=== PATIENT | male | born 1940 | race Caucasian/White ===

== ENCOUNTER → 2016-10-09 | Outpatient (CLI) | payer OTHER, MEDICARE ==
[~2016-10-09] VITALS: Ht 188 cm; Wt 115.2 kg
[~2016-10-09] MED LIST: ADULT LOW DOSE81 MG PO; ADVIL LIQUI-GE200 MG PO; ADVIL PM CAPLE1 EACH PO; ALEVE220 MG PO; ALLERGY10 M2 PO; ALVESCO6.1 GM INH; APAP500 PO; ASPIR 8181 MG PO; BENADRYL ALLERG25 MG PO; BENADRYL25 MG PO; CARAFATE 1 GM TA1 G1 PO; CARTIA XT180 M1 PO; CENTRUM SILVER1 EAC4 PO; CHONDROITIN SU250 MG PO; CIALIS20 MG PO; COZAAR 50 MG TA50 M2 PO; DILTIAZEM 24HR180 MG PO; DYAZIDE 37.5-21 EACH PO; FINASTERIDE5 MG PO; FISH OIL 1,0001 EAC5 PO; FLOMAX0.4 MG PO; GLUCOPHAGE1000 MG PO; GLUCOPHAGE500 MG PO; GLUCOSAMIN-CHO1 EACH PO; GLUCOSAMINE &1 EAC1 PO; GLUCOSAMINE HC500 MG PO; GLUCOSAMINE-CH1 EA33 PO; GLUCOSAMINE-CH900 MG PO; IBUPROFEN 200200 M1 PO; IBUPROFEN 800800 M1 PO; IMDUR 30 MG TAB30 M1 PO; LAMISIL250 MG PO; LANSOPRAZOLE30 MG PO; LIPITOR20 MG PO; LISINOPRIL10 MG PO; LOPRESSOR 12.12.5 MG PO; METFORMIN HCL500 MG PO; MULTIVITAMINS PO; OMEGA 3 FISH O1 EACH PO; OMEPRAZOLE40 MG PO; OXYBUTYNIN 5 MG5 M1 PO; PREVACID30 MG PO; PROAIR HFA8.5 GM INH; PROTONIX40 M2 PO; RANEXA 500 MG500 M1 PO; RANEXA500 MG PO; REFRESH TEARS15 ML OPHTHALMIC; REFRESH5 ML OP; SIMVASTATIN40 MG PO; TYLENOL EXTRA500 MG PO
--- NOTE | ~2016-10-09 | HPC ---
[facility] [place] [address] PAIN MANAGEMENT CONSULTATION Name: SHANNON GASTON Room #: REG [facility] Marilyn.#: [id number] Admission: 10/09/16 Attend Phys: Ed Norman DO Discharge: Date of : 42 Report #: [id number] THIS REPORT FOR: //name// CC: Karsten Norman The patient is a very pleasant 76-year-old gentleman seen in consultation 09/21/2016. Given a lumbar epidural injection with significant improvement of baseline pain. The patient is scheduled to have a decompressive laminectomy with Dr. Gonzalo Costello at the end of October. He notes he had 100% relief of his back pain for 2-3 weeks, the pain is beginning to recur. Rates the pain 6 on a 0-10 visual analog scale, low back, right leg to the knee wraps around to the calf. PHYSICAL EXAMINATION: Unchanged from presentation. ASSESSMENT: Symptomatic lumbar radiculopathy secondary to spinal stenosis. RECOMMENDATION: Repeat epidural injection under fluoroscopy today, right of midline at L5-S1. Follow up simply as needed. Plan on following up with Dr. Costello for decompressive laminectomy. I will be happy to see him if he has ongoing pain subsequent. PROCEDURE: Lumbar epidural injection under fluoroscopy. PROCEDURE NOTE: After both written and informed consent to include risk of spinal cord damage, increased pain, weakness and dural puncture, the patient was taken to the fluoroscopy suite, placed in the prone position. After sterile prep and drape, a skin wheal with lidocaine was raised. A 22-gauge epidural Tuohy needle was inserted in the midline at L5-S1 with good loss to resistance. Negative aspiration for cerebrospinal fluid or blood was noted. Then 1 mL of Omnipaque under biplanar fluoroscopy showed good spread within the epidural space. This was followed with 80 mg of triamcinolone plus 1 mL of 1.5% preservative-free Xylocaine, 0.5 mL Xylocaine was then injected to flush the needle; it was removed. The patient was monitored for an appropriate period of time and discharged in good and stable condition. <ELECTRONICALLY SIGNED> By: Ed Norman DO 10/12/16 1237 1254 1945 Ed Norman DO /nt
[2016-10-09 11:08] VITALS: BP 148/71
== END ==
LOC: PAIN 06:10
DX: M48.06 Spinal stenosis, lumbar region (principal); F10.21 Alcohol dependence, in remission

== ENCOUNTER → 2016-11-02 | Outpatient (CLI) | payer OTHER, MEDICARE ==
[~2016-11-02] VITALS: Ht 185.4 cm; Wt 111.1 kg
[~2016-11-02] MED LIST changes: +MAXZIDE-25 MG1 EACH PO
--- NOTE | ~2016-11-02 | CATHLAB ---
[facility] [place] [address] INVASIVE PROCEDURE REPORT Name: SHANNON GASTON Room #: REG [facility]#: [id number] Admission: 11/02/16 Attend Phys: Wang Sharpe MD Discharge: Date of : 42 Date of Service: 11/02/16 1526 Report #: [id number] THIS REPORT FOR: //name// CC: Wang Sheets DATE OF SERVICE: 11/02/2016 INDICATIONS: Unstable angina. Full risks, benefits and alternatives of cardiac catheterization were explained to the patient. All questions were answered. Informed consent was obtained. A Barbeau test was performed on the left radial artery. The left wrist area was prepped and draped in a sterile manner. Lidocaine was given subcutaneously. A 5-Italian sheath was inserted into the left radial artery via modified Seldinger technique. Nitroglycerin and verapamil was injected through the sheath. 5000 units of heparin was given through peripheral IV. CORONARY ANATOMY: The left main has a severe, 80% stenosis in the distal segment. The RCA is a dominant vessel with mild disease in the proximal and mid segments, 30%. The distal RCA fills patent PDA and moderate sized posterolateral branch. GRAFTS: There is a patent GROSSMAN graft to left internal mammary artery with an end-to-side anastomosis to the mid LAD. There were no flow limiting lesions within the mammary. After the anastomosis, there is antegrade flow down to the apex. There is a patent sequential vein graft with a [id number] anastomosis to the first diagonal artery and then an end-to-side anastomosis to moderate sized ramus artery. There were no flow limiting lesions within the vein graft. There is a small second diagonal artery, filled via collateral circulation. The left circumflex artery is filled via retrograde blood flow from the ramus artery. A left ventriculogram was performed revealing normal LV systolic function, ejection fraction of 60%. The LVEDP is 18 mmHg. There is no gradient across the outflow tract. IMPRESSION: 1. Patent left internal mammary artery to the left anterior descending. 2. Patent sequential saphenous vein graft to the first diagonal artery and ramus artery. There is retrograde filling from the ramus artery to the left [facility] [address] [place] [address] INVASIVE PROCEDURE REPORT Name: SHANNON GASTON Room #: REG [facility]#: [id number] Admission: 11/02/16 Attend Phys: Wang Sharpe MD Discharge: Date of : 42 Date of Service: 11/02/16 1526 Report #: [id number] circumflex artery. 3. Occluded second diagonal artery, this is a small caliber vessel, which fills via collateral circulation. Medical therapy is recommended. 4. Patent, capitan grande band right coronary artery with mild disease. 5. Normal left ventricular systolic function. 6. Recommend medical therapy. <ELECTRONICALLY SIGNED> By: Wang Sharpe MD 11/03/16 0902 1526 Wang Sharpe MD /lani
[2016-11-02 11:51] VITALS: BP 121/57
[2016-11-02 11:55] LABS: HEMATOCRIT 37.7 % (42.0-52.0); HEMOGLOBIN 12.7 gm/dL (14.0-18.0); MCH 25.9 pg (26.0-34.0); MCHC 33.6 g/dL (28.0-37.0); MCV 76.9 fL (80.0-100.0); RBC 4.91 mil/uL (4.50-6.00); RDW 18.2 % (10.5-14.5); WBC 7.7 thou/uL (4.0-11.0)
[2016-11-02 12:03] LABS: CALCIUM 9.2 mg/dL (8.5-10.1); CREATININE 1.2 mg/dL (0.7-1.3); POTASSIUM 4.2 mmol/L (3.5-5.1)
== END | disposition home or self-care (01) ==
LOC: CATH 10:25
PROVIDERS: Internal Medicine Cardiovascular Disease
DX: I25.10 Atherosclerotic heart disease of native coronary artery without angina pectoris (principal); E11.9 Type 2 diabetes mellitus without complications; I49.9 Cardiac arrhythmia, unspecified; K21.9 Gastro-esophageal reflux disease without esophagitis; I10 Essential (primary) hypertension; E78.5 Hyperlipidemia, unspecified; E66.9 Obesity, unspecified; F10.99 Alcohol use, unspecified with unspecified alcohol-induced disorder; Z96.641 Presence of right artificial hip joint; Z96.653 Presence of artificial knee joint, bilateral; Z95.1 Presence of aortocoronary bypass graft; Z90.49 Acquired absence of other specified parts of digestive tract; Z98.42 Cataract extraction status, left eye; Z98.41 Cataract extraction status, right eye; Z68.32 Body mass index [BMI] 32.0-32.9, adult

== ENCOUNTER → 2016-12-31 | Outpatient (CLI) | payer OTHER, MEDICARE | LOC: RAD 11:09 | DX: R06.02 Shortness of breath (principal) ==

== ENCOUNTER → 2017-01-07 | Outpatient (CLI) | payer OTHER, MEDICARE | LOC: ULTRA 07:38 | DX: I82.409 Acute embolism and thrombosis of unspecified deep veins of unspecified lower extremity (principal); R06.00 Dyspnea, unspecified ==

== ENCOUNTER 2017-03-22 17:20 | Emergency (ER) | payer OTHER, MEDICARE ==
[~2017-03-22] VITALS: Ht 188 cm; Wt 117.9 kg
[2017-03-22] MEDS ORDERED: ELIQUIS5 MG PO (18:07)
[2017-03-22] MEDS ORDERED: NEURONTIN 300300 M1 PO (18:09)
== END 2017-03-22 19:42 | disposition home or self-care (01) ==
LOC: ER 17:20
DX: S00.03XA Contusion of scalp, initial encounter (principal); I10 Essential (primary) hypertension; E78.5 Hyperlipidemia, unspecified; G47.30 Sleep apnea, unspecified; F10.99 Alcohol use, unspecified with unspecified alcohol-induced disorder; Z95.5 Presence of coronary angioplasty implant and graft; Z96.641 Presence of right artificial hip joint; Z90.49 Acquired absence of other specified parts of digestive tract; Z96.653 Presence of artificial knee joint, bilateral; Z88.8 Allergy status to other drugs, medicaments and biological substances; Z88.5 Allergy status to narcotic agent; Z88.6 Allergy status to analgesic agent; V43.52XA Car driver injured in collision with other type car in traffic accident, initial encounter; Y93.I9 Activity, other involving external motion; Y92.89 Other specified places as the place of occurrence of the external cause; Y99.8 Other external cause status

== ENCOUNTER → 2017-05-26 | Outpatient (CLI) | payer OTHER, MEDICARE ==
[~2017-05-26] MED LIST changes: +ELIQUIS5 MG PO; +NEURONTIN 300300 M1 PO
--- NOTE | ~2017-05-26 | 2DMMODE ---
[facility] [place] [address] 2 D/M-MODE ECHOCARDIOGRAM Name: MARILINSHANNON Room #: REG CL [facility]#: [id number] Admission: 05/26/17 Attend Phys: Francisco Hawkins Discharge: Date of : 42 Date of Service: 05/26/17 1413 Report #: [id number] THIS REPORT FOR: //name// APPROVED REPORT Study performed: 05/26/2017 09:50:11 EXAM: Comprehensive 2D, Doppler, and color-flow Echocardiogram Patient Location: Out-Patient Status: routine BSA: 2.41 HR: 60 bpm BP: 172/75 mmHg Other Information Study Quality: Adequate Indications Pulmonary Hypertension Hx: CABG, HTN, HLD 2D Dimensions RVDd: 40.25 mm LVEF(%): 60.38 (>50%) IVSd: 14.64 (7-11mm) LVOT Diam: 20.80 (18-24mm) LVDd: 52.53 mm PWd: 15.26 (7-11mm) Ascending Ao: 31.12 (22-36mm) LVDs: 35.47 (25-40mm) Aortic Root: 33.18 mm IVC: 20.00 mm Jones's LVEF: 60.38 % Volumes Left Atrial Volume (Systole) Single Plane 4CH: 90.74 mL Single Plane 2CH: 77.40 mL LA ESV Index: 42.00 mL/m2 Aortic Valve AoV Peak Kenny.: 1.77 m/s AO Peak Gr.: 12.53 mmHg LVOT Max P.32 mmHg LVOT Max V: 1.26 m/s CANDIE Vmax: 2.41 cm2 Mitral Valve E/A Ratio: 1.5 MV Decel. Time: 241.79 ms [facility] [place] [address] 2 D/M-MODE ECHOCARDIOGRAM Name: SHANNON GASTON Room #: [facility].#: [id number] Admission: 05/26/17 Attend Phys: Francisco Hawkins Discharge: Date of : 42 Date of Service: 05/26/17 1413 Report #: [id number] MV E Max Kenny.: 1.21 m/s MV A Kenny.: 0.81 m/s MV PHT: 70.12 ms IVRT: 36.91 ms Pulmonary Valve PV Peak Kenny.: 1.67 m/s PV Peak Gr.: 11.11 mmHg Pulmonary Vein P Vein S: 0.69 m/s P Vein A: 0.22 m/s P Vein D: 0.62 m/s P Vein A Dur.: 129.2 msec P Vein S/D Ratio: 1.11 Tricuspid Valve TR Peak Kenny.: 2.94 m/s RAP Estimate: 5.00 mmHg TR Peak Gr.: 34.46 mmHg PA Pressure: 39.00 mmHg Left Ventricle The left ventricle is normal size. There is normal LV segmental wall motion. Mild concentric left ventricular hypertrophy. The left ventricular systolic function is normal. LVEF is 60-65%. Grade II - pseudonormal filling dynamics. Right Ventricle The right ventricle is normal size. The right ventricular systolic function is normal. Atria Left atrium is moderately dilated. Right atrium is mildly dilated. Aortic Valve Aortic valve is calcified. No aortic regurgitation is present. There is no aortic valvular stenosis. Mitral Valve Mild mitral annular calcification. Trace mitral regurgitation. No evidence of mitral valve stenosis. Tricuspid Valve The tricuspid valve is normal in structure. Mild to moderate tricuspid regurgitation. Estimated PAP of 39mmHg. Pulmonic Valve The pulmonary valve is normal in structure. Trace pulmonic [facility] [address] [place] [address] 2 D/M-MODE ECHOCARDIOGRAM Name: SHANNON GASTON Room #: REG CL [facility]#: [id number] Admission: 05/26/17 Attend Phys: Francisco Hawkins Discharge: Date of : 42 Date of Service: 05/26/17 1413 Report #: [id number] regurgitation. Great Vessels The aortic root is normal in size. IVC is normal in size and collapses >50% with inspiration. Pericardium There is no pericardial effusion. <Conclusion> The left ventricle is normal size. LVEF is 60-65%. Left atrium is moderately dilated. Right atrium is mildly dilated. Aortic valve is calcified. No aortic regurgitation is present. There is no aortic valvular stenosis. Mild mitral annular calcification. Trace mitral regurgitation. The tricuspid valve is normal in structure. Mild to moderate tricuspid regurgitation. Estimated PAP of 39mmHg. The pulmonary valve is normal in structure. Trace pulmonic regurgitation. There is no pericardial effusion. <ELECTRONICALLY SIGNED> By: Paxton Davis MD 05/26/17 1413 12 12 Paxton Davis MD /INF
== END ==
LOC: CV 09:41
DX: I27.20 Pulmonary hypertension, unspecified (principal)

== ENCOUNTER 2017-10-05 03:18 | Inpatient (IN) | payer OTHER, MEDICARE ==
[~2017-10-05] VITALS: Ht 188 cm; Wt 116.8 kg
--- NOTE | ~2017-10-05 | EKG ---
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 10/12/17 1321 140 07 Paulo Shepard MD, [facility] /EPI
--- NOTE | ~2017-10-05 | S ---
[facility] [place] [address] SURGICAL PATH RPT PROCEDURE Name: MARILINSHANNON Su Room #: 358-P ADM IN M.R.#: [id number] Admission: 10/05/17 Date of : 42 Discharge: Report #: [id number] Path Case #: [id number] PATHOLOGY REPORT COLLECTION DATE: 10/11/2017 RECEIVED DATE: 10/11/2017 SUBMITTING PHYS: Dr. Ifrah Benitez OTHER PHYS: Dr. Karsten Lugo SPECIMEN(S) RECEIVED: A.Small bowel B.Gastric polyp C.Cecal polyps x2 D.Descending polyp at 50 cm E.Polyps at 25 cm x5 * * * * * * * * * * * * FINAL DIAGNOSIS: A. Small bowel mucosa, small bowel rule out celiac, endoscopic biopsy: - Negative for villous blunting or increase in intraepithelial lymphocytosis. - Negative for dysplasia or malignancy. B. Polyp, gastric polyp, endoscopic biopsy: - Compatible with a fundic gland polyp. - Negative for dysplasia. C. Polyp x 2, cecal polyp, endoscopic biopsy: - Both fragments showing tubular adenoma. - Negative for high-grade dysplasia. D. Polyp, at descending colon at 50 cm, endoscopic biopsy: - Tubular adenoma. - Negative for high-grade dysplasia. E. Polyp, at 25 cm x 5, endoscopic biopsy: - All fragments showing hyperplastic polyp. - Negative for dysplasia. (IUV:mgr; 10/12/2017) PATHOLOGIST: Bita Aparicio M.D. REPORT ELECTRONICALLY SIGNED BY: Bita Aparicio M.D. DATE/TIME: 10/12/2017 14:13 * * * * * * * * * * * * GROSS PATHOLOGY: A. Received in formalin labeled "BECCA Rodriguez small bowel, rule out celiac," is a segment of tidwell soft tissue measuring 0.3 [address] [address] SURGICAL PATH RPT PROCEDURE Name: SHANNON GASTON Room #: 358-P ADM IN .R.#: [id number] Admission: 10/05/17 Date of : 41 Discharge: Report #: [id number] Path Case #: [id number] maximum dimension. The specimen is submitted entirely in cassette A1. B. Received in formalin labeled "BECCA Rodriguez gastric polyp," are 2 segments of tidwell soft tissue measuring 0.5 x 0.3 x 0.3 cm in aggregate dimensions and ranging from 0.3 to 0.5 cm in maximum dimension. The specimen is submitted entirely in cassette B1. C. Received in formalin labeled "Shannon Gaston, cecal polyp 2," are 2 segments of tidwell soft tissue measuring 0.8 x 0.5 x 0.2 cm in aggregate dimensions and ranging from 0.3 to 0.5 cm in maximum dimension. The specimen is submitted entirely in cassette C1. D. Received in formalin labeled "Shannon Gaston, polyp at descending colon at 50 cm," are 4 segments of tidwell soft tissue measuring 2.3 x 1.2 x 0.5 cm in aggregate dimensions and ranging from 0.4 to 0.8 cm in maximum dimension. The specimen is submitted entirely in cassette D1. E. Received in formalin labeled "Shannon Gaston, polyps at 25 cm 5," are 3 segments of tidwell soft tissue measuring 1.0 x 0.5 x 0.2 cm in aggregate dimensions and ranging from 0.2 to 0.4 cm in maximum dimension. The specimen is submitted entirely in cassette E1. After filtration of the specimen container, no additional tissue was recovered. (TSD; 10/11/2017) CLINICAL HISTORY: Pre-OP DX: GI bleed, iron deficiency anemia Post-OP DX: Cecal polyps, gastric polyps, colon polyps INITIAL CPT CODE(S): A; 16780 B; 19141 C; 22800 D; 86334 E; 52798 Professional services performed by [employer] at [facility] [address], [place] [address] Technical services performed by [employer] at [address] [place] [address], [address], [place] [address]. [employer] [address] [place] [address] PHONE: [phone] DIRECTOR: Tristian Kilpatrick M.D. * * * END OF REPORT * * *
--- NOTE | ~2017-10-05 | HC ---
[facility] [place] [address] CONSULTATION Name: SHANNON GASTON Room #: 170-8 ADM IN M.R.#: [id number] Admission: 10/05/17 Attend Phys: Isidoro Florentino MD Discharge: Date of : 42 Report #: [id number] THIS REPORT FOR: //name// CC: Isidoro Fumo Carlos Sheets DATE OF SERVICE: 10/05/2017 ATTENDING PHYSICIAN: Dr. Florentino. REASON FOR CONSULTATION: Fever, leukocytosis. HISTORY OF PRESENT ILLNESS: The patient is a 77-year-old white man, admitted through the Emergency Room with history of confusion, fever and leukocytosis. Apparently, the patient was undergoing bowel prep for a colonoscopy today when he accidentally suffered a fall, became confused and he was brought to the Emergency Room where his initial evaluation revealed significant leukocytosis and fever of 102 degrees Fahrenheit. The patient undergoes initial evaluation and started on combination of Levaquin, vancomycin, Zosyn and oseltamivir. ID opinion is requested regarding leukocytosis and fever of 102. The patient at present is completely alert and a delightful person to interview. He has minimal throat discomfort and some hoarseness of his voice and he has some mild left flank discomfort, but no other focal type signs or symptoms. The patient denies nausea, vomiting. Obviously he is having liquid stools since he is undergoing bowel prep for colonoscopy. He does have frequent urination for a number of years on account of prostate enlargement. PAST MEDICAL HISTORY: Coronary artery bypass graft in 2008, right total hip and right total knee replacement in the years 2013 and 2011. Right shoulder rotator cuff surgery, cholecystectomy, left total knee replacement in 1994. Hypertension, hiatal hernia, AV node ablation for atrial tachycardia, Inga-Dixon tear GI bleeding. Cervical diskectomy, appendectomy, bilateral cataract surgery lens implants and right-sided macular degeneration. Previous episode of small-bowel obstruction. DRUG ALLERGIES: TERBINAFINE, OXYCODONE, PROPOXYPHENE, ADHESIVE TAPE. MEDICATIONS: The patient is on treatment with vancomycin loading dose 2 grams followed by 1 gram every 8 hours, Zosyn 4.5 gram IV single dose, Levaquin 750 mg IV daily, also receiving multivitamin, aspirin, finasteride, isosorbide mononitrate, , diltiazem, gabapentin, apixaban, tamsulosin, atorvastatin, insulin Lispro, loratadine, fluticasone propionate, p.r.n. glucose glucagon, polyethylene glycol, sublingual nitroglycerin if needed, oseltamivir 75 mg b.i.d. x 10 doses. The patient [place] [address] CONSULTATION Name: SHANNON GASTON Room #: 170-8 [facility] IN M.R.#: [id number] Admission: 10/05/17 Attend Phys: Isidoro Florentino MD Discharge: Date of : 42 Report #: [id number] SOCIAL HISTORY: . Living with . REVIEW OF SYSTEMS: Fully alert and cognizant of on jeb at the present time. Relates he was confused early this morning. Remainder of review of systems negative. PHYSICAL EXAMINATION: GENERAL: A well-developed man, not toxic looking, no distress. VITAL SIGNS: Temperature 102.5 on admission, down to 99.5, pulse 86, respirations 18, BP 129/55. HEENMT: Status post bilateral lens implants. Mouth: No thrush or hairy leukoplakia. Pharynx normal. NECK: Supple, no thyromegaly. LUNGS: Totally clear on auscultation. HEART: S1, S2. No gallops or murmur. ABDOMEN: Soft, no masses or megaly. GENITALIA: Deferred. RECTAL: Deferred. EXTREMITIES: No clubbing, cyanosis. NEUROLOGIC: Grossly within normal limits. LABORATORY DATA: Revealed the following abnormals: Creatinine 1.5, glucose 180. WBC 21,300, hemoglobin 12.3 g/dL, white blood cell count differential revealed 86% neutrophils. Hemoglobin A1c pending. B12 level normal. The upper viral respiratory panel by PCR is pending. The rapid influenza A and B test negative. The urinalysis revealed some ketonuria, otherwise negative. No ABGs. MICROBIOLOGY DATA: Blood cultures negative. No clinical indication for urine culture. RADIOLOGY EVALUATION: CT scan of the head revealed atrophic changes. Chest x-ray reveals status post coronary artery bypass graft and no pulmonary infiltrates. CT scan of the abdomen and pelvis revealed status post cholecystectomy, splenomegaly, inferior vena cava filter and right renal cyst as well as sigmoid diverticula. ASSESSMENT: 1. Febrile illness and leukocytosis of undetermined etiology, possible viral. 2. Colonic diverticula. 3. Bowel preps for colonoscopy. 4. History of coronary artery bypass grafting, status post cholecystectomy, appendectomy, bilateral total knee replacements and right hip replacement. 5. Status post bilateral cataract surgery with lens implants and right-sided macular degeneration. SUGGESTIONS: Recommend ESR, CRP, MRSA screen, procalcitonin. Discontinue [facility] [address] [place] [address] CONSULTATION Name: SHANNON GASTON Room #: 170-8 ADM IN M.R.#: [id number] Admission: 10/05/17 Attend Phys: Isidoro Florentino MD Discharge: Date of : 42 Report #: [id number] vancomycin. Continue Levaquin and add Zosyn 3.375 grams IV every 8 hours. If cultures negative, discontinue intravenous antibiotics. If rapid influenza test and influenza test by PCR negative, discontinue oseltamivir. Suspect we are dealing with viral infection. Dr. Florentino, thank you for requesting my suggestions in the care of your patient. <ELECTRONICALLY SIGNED> By: Ned Gonzalez MD 10/05/17 1106 1032 1100 Ned Gonzalez MD /nt
--- NOTE | ~2017-10-05 | HC ---
[facility] [place] [address] CONSULTATION Name: SHANNON GASTON Room #: 358-P [facility] IN M.R.#: [id number] Admission: 10/05/17 Attend Phys: Shannon Lugo DO Discharge: 10/12/17 Date of : 42 Report #: [id number] THIS REPORT FOR: //name// CC: Ned Sheets DATE OF SERVICE: 10/07/2017 REASON FOR CONSULTATION: Dyspnea. IMPRESSION: 1. Dyspnea, question related to sepsis. 2. Group B strep bacteremia. 3. Right leg cellulitis. 4. Microcytic anemia. 5. Obstructive sleep apnea. 6. History of deep venous thrombosis and pulmonary embolism. 7. Question of gastrointestinal bleed or colon lesion. 8. Possible diverticulitis. PLAN: 1. Agree with current therapy. We will ask GI to see because of the confusing area on CT scan and mild drop in hemoglobin, which may be related to volume status and blood draw: 2. We will do venous Doppler of the lower extremity. 2. We will use his home CPAP. 3. We will do a chest x-ray. 4. May need CT of chest, if he continues to complain of progressive shortness of breath. HISTORY OF PRESENT ILLNESS: This is a very pleasant 77-year-old male came in the ER secondary to an episode of confusion, fatigue and falling related to taking his bowel prep. He was found to have group G streptococcus bacteremia, 1 out of 2 and per the physician seemed to be getting better, but discussed with started feeling somewhat worse and leg reddened today and became more swollen. He did have some shortness of breath. No definite chest pain or palpitations. PAST MEDICAL HISTORY: ALLERGIES: TO LAMISIL, ADHESIVE, OXYCODONE AND PROPOXYPHENE. MEDICATIONS: Includes omeprazole, glucosamine, metformin, triamterene, diltiazem, apixaban, gabapentin, atorvastatin, isosorbide, losartan, Ranexa, finasteride, multivitamin, omega 3, amoxicillin and I believe put back on Rocephin. [facility] [address] [place] [address] CONSULTATION Name: SHANNON GASTON Room #: 358-P [facility] IN .R.#: [id number] Admission: 10/05/17 Attend Phys: Shannon Lugo DO Discharge: 10/12/17 Date of : 42 Report #: [id number] FAMILY HISTORY: Noncontributory. SOCIAL HISTORY: Negative current tobacco, ETOH or drugs of abuse. REVIEW OF SYSTEMS: Initially weak, chill and disorientation. No definite chest pain. Positive shortness of breath and mild cough. No definite abdominal pain. Positive rash, right leg. PHYSICAL EXAMINATION: VITAL SIGNS: Temperature 97.5, pulse 63, respiratory rate 20 and BP 147/77. EYES: Negative icterus. NECK: Trachea midline. LUNGS: Clear. HEART: Regular. ABDOMEN: Bowel sounds present. Obese. EXTREMITIES: Showed right lower extremity erythema, edema and tenderness. LABORATORY DATA: Venous Doppler is negative. Lactate 1.5. Chest x-ray: Cardiomegaly and mild vascular prominence. pH 7.45, pCO2 34 and pO2 78. We will follow closely with you. <ELECTRONICALLY SIGNED> By: Kimber Wilson MD 10/28/17 1054 1729 0053 Kimber Wilson MD /nt
--- NOTE | ~2017-10-05 | EKG ---
[place] [address] [address] [facility] [place] [address] ELECTROCARDIOGRAM REPORT Name: SHANNON GASTON Room #: 170-8 ADM IN M.R.#: [id number] Admission: 10/05/17 Attend Phys: Isidoro Florentino MD Discharge: Date of : 42 Report #: [id number] THIS REPORT FOR: //name// [facility] ED Test Date: 2017-10-05 Test Time: 03:59:32 Pat Name: SHANNON GASTON Department: Room: 170 Gender: M Case Fitter: GISELE : 1940 Requested By: Jose Diaz Order Number: [id number] MD: Paulo Shepard Measurements Intervals [place] Rate: 98 P: -4 ID: [id number] QRS: 43 QRSD: 92 T: 171 QT: 384 QTc: 491 Interpretive Statements Sinus rhythm Prolonged ID interval Nonspecific ST and T wave abnormality prolonged QT interval Compared to ECG 08/03/2015 23:01:38 First degree AV block now present Electronically Signed On 10-05-2017 7:56:47 INJECTION MOLDING MACHINE OFFBEARER by Paulo Shepard [email or web address] <ELECTRONICALLY SIGNED> By: Paulo Shepard MD, [facility] 10/05/17 0756 0359 0359 Paulo Shepard MD, [facility] /EPI
--- NOTE | ~2017-10-05 | EKG ---
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 10/08/17 0844 D: [id number] 1 Paulo Shepard MD, [facility] /EPI
[2017-10-05 03:55] LABS: HEMOGLOBIN 12.3 gm/dL (14.0-18.0); MCH 24.7 pg (26.0-34.0); MCHC 32.4 g/dL (28.0-37.0); MCV 76.3 fL (80.0-100.0); PLATELET COUNT 194 thou/uL (150-400); RBC 4.97 mil/uL (4.50-6.00); RDW 16.9 % (10.5-14.5); WBC 21.3 thou/uL (4.0-11.0)
[2017-10-05 04:05] LABS: ANION GAP 14 mmol/L (7-16); BUN 18 mg/dL (7-18); CALCIUM 9.4 mg/dL (8.5-10.1); CHLORIDE 101 mmol/L (98-107); CO2 24 mmol/L (21-32); CREATININE 1.5 mg/dL (0.7-1.3); GLUCOSE 180 mg/dL (74-106); POTASSIUM 3.6 mmol/L (3.5-5.1); SODIUM 139 mmol/L (136-145)
[2017-10-05 04:13] LABS: LIPASE 74 U/L (73-393); SGOT 17 U/L (15-37); SGPT 23 U/L (30-65); TOTAL BILIRUBIN 0.9 mg/dL (<0.1-1.0); TOTAL PROTEIN 7.5 g/dL (6.4-8.2); TROPONIN-I < 0.04 ng/mL (<0.06)
[2017-10-05 04:41] LABS: ANISOCYTOSIS 1+
[2017-10-05 05:00] LABS: URINE BILIRUBIN NEGATIVE (Negative); URINE BLOOD NEGATIVE (Negative); URINE CLARITY CLEAR; URINE COLOR YELLOW; URINE GLUCOSE-RANDOM* NEGATIVE (Negative); URINE KETONES 1+ (Negative); URINE LEUKOCYTES-REFLEX NEGATIVE (Negative); URINE NITRITE-REFLEX NEGATIVE (Negative); URINE PROTEIN (DIPSTICK) NEGATIVE (Negative); URINE SPECIFIC GRAVITY >= 1.030 (1.005-1.035); URINE UROBILINOGEN 0.2 E.U./dl (0.2-1.0)
[2017-10-05 09:19] LABS: CHOLESTEROL 114 mg/dL (<200); HDL CHOLESTEROL 48 mg/dL (>40); LDL CHOLESTEROL 53 mg/dL (<100); TC:HDL 2.4 Ratio (Not establshd); TRIGLYCERIDE 67 mg/dL (<150); VLDL 13 mg/dL (<40)
[2017-10-05 10:39] VITALS: BP 124/60
[2017-10-05 13:43] VITALS: BP 134/70
[2017-10-05 15:25] VITALS: BP 140/80
[2017-10-05 19:25] VITALS: BP 148/75
[2017-10-05 23:45] VITALS: BP 142/68
[2017-10-06 01:10] LABS: GLYCOHEMOGLOBIN (HGB A1C) 5.9 % (4.8-5.6)
[2017-10-06 04:30] VITALS: BP 148/70
[2017-10-06 06:51] LABS: ABSOLUTE NEUTROPHILS 7.2 thou/uL (1.4-8.2); BASOPHILS 0.4 % (0.0-2.0); EOSINOPHILS 0.1 % (0.0-3.0); HEMATOCRIT 35.8 % (42.0-52.0); HEMOGLOBIN 11.8 gm/dL (14.0-18.0); LYMPHOCYTES 10.7 % (24.0-44.0); MCHC 32.9 g/dL (28.0-37.0); MONOCYTES 8.3 % (1.0-8.0); PLATELET COUNT 150 thou/uL (150-400); POLYS 80.5 % (36.0-66.0); RBC 4.71 mil/uL (4.50-6.00); RDW 16.7 % (10.5-14.5); WBC 8.9 thou/uL (4.0-11.0)
[2017-10-06 07:03] LABS: CALCIUM 8.6 mg/dL (8.5-10.1); CREATININE 1.3 mg/dL (0.7-1.3); MAGNESIUM 1.7 mg/dL (1.8-2.4); POTASSIUM 3.4 mmol/L (3.5-5.1)
[2017-10-06 07:48] VITALS: BP 137/75
[2017-10-06 11:38] VITALS: BP 117/63
[2017-10-06 15:43] VITALS: BP 130/55
[2017-10-06 17:59] LABS: MAGNESIUM 1.9 mg/dL (1.8-2.4); POTASSIUM 3.3 mmol/L (3.5-5.1)
[2017-10-06 20:00] VITALS: BP 126/52
[2017-10-07 04:00] VITALS: BP 145/56
[2017-10-07 04:34] LABS: HEMATOCRIT 30.7 % (42.0-52.0); HEMOGLOBIN 10.3 gm/dL (14.0-18.0); MCH 25.4 pg (26.0-34.0); MCHC 33.6 g/dL (28.0-37.0); MCV 75.8 fL (80.0-100.0); RBC 4.05 mil/uL (4.50-6.00); RDW 16.9 % (10.5-14.5); WBC 6.3 thou/uL (4.0-11.0)
[2017-10-07 04:46] LABS: % SATURATION 6 % (20-39); IRON 19 ug/dL (65-175); TIBC 303 ug/dL (250-450)
[2017-10-07 04:49] LABS: ALBUMIN 2.8 g/dL (3.4-5.0); CALCIUM 8.4 mg/dL (8.5-10.1); CREATININE 1.2 mg/dL (0.7-1.3); POTASSIUM 3.6 mmol/L (3.5-5.1); TOTAL BILIRUBIN 0.3 mg/dL (<0.1-1.0); TOTAL PROTEIN 6.1 g/dL (6.4-8.2)
[2017-10-07] MEDS ORDERED: OMEPRAZOLE40 MG PO (08:07)
[2017-10-07 08:45] VITALS: BP 150/70
[2017-10-07 12:08] VITALS: BP 127/56
[2017-10-07 17:27] VITALS: BP 129/54
[2017-10-07 19:36] VITALS: BP 140/66
[2017-10-08 03:52] VITALS: BP 139/77
[2017-10-08 05:33] LABS: HEMATOCRIT 31.5 % (42.0-52.0); HEMOGLOBIN 10.5 gm/dL (14.0-18.0); MCH 25.2 pg (26.0-34.0); MCHC 33.2 g/dL (28.0-37.0); MCV 75.8 fL (80.0-100.0); PLATELET COUNT 147 thou/uL (150-400); RBC 4.15 mil/uL (4.50-6.00); RDW 16.6 % (10.5-14.5); WBC 6.2 thou/uL (4.0-11.0)
[2017-10-08 05:40] LABS: CALCIUM 8.7 mg/dL (8.5-10.1); CREATININE 1.2 mg/dL (0.7-1.3); POTASSIUM 3.7 mmol/L (3.5-5.1)
[2017-10-08 07:25] VITALS: BP 150/82
[2017-10-08] MEDS ORDERED: AMOXICILLIN 50500 MG PO (08:40)
[2017-10-08 09:27] LABS: ANISOCYTOSIS 1+; PLATELET ESTIMATE SLIGHTLY DECREASED
[2017-10-08 09:28] LABS: HYPOCHROMASIA 1+; LARGE PLATELETS FEW; MICROCYTES 1+; OVALOCYTES 1+; POIKILOCYTOSIS 1+; POLYCHROMASIA SLIGHT
[2017-10-08 09:29] LABS: TOXIC GRANULATION SLIGHT
[2017-10-08 10:12] VITALS: BP 150/82
[2017-10-08 11:28] VITALS: BP 147/74
[2017-10-08 11:51] LABS: BE(vivo) -0.3 mmol/L (-2 to +3); HCO3 23.2 mmol/L (22.0-26.0); PCO2 33.8 mmHg (35.0-45.0); PO2 78.2 mmHg (80.0-100.0); pH 7.454 (7.360-7.450); sO2 96.2 % (92.0-98.0)
[2017-10-08 16:11] VITALS: BP 147/77
[2017-10-08 19:45] VITALS: BP 136/75
[2017-10-08 23:10] LABS: ADENOVIRUS Negative (Negative); INFLUENZA A Negative (Negative); INFLUENZA B Negative (Negative); METAPNEUMOVIRUS Negative (Negative); PARAINFLUENZA 1 Negative (Negative); PARAINFLUENZA 2 Negative (Negative); PARAINFLUENZA 3 Negative (Negative); RHINOVIRUS Negative (Negative); RSV A Negative (Negative); RSV B Negative (Negative)
[2017-10-09 03:29] VITALS: BP 131/73
[2017-10-09 06:51] LABS: HEMATOCRIT 31.7 % (42.0-52.0); HEMOGLOBIN 10.6 gm/dL (14.0-18.0); MCH 25.2 pg (26.0-34.0); MCHC 33.5 g/dL (28.0-37.0); MCV 75.3 fL (80.0-100.0); RBC 4.21 mil/uL (4.50-6.00); RDW 16.7 % (10.5-14.5)
[2017-10-09 08:32] VITALS: BP 116/80
[2017-10-09 11:24] VITALS: BP 166/75
[2017-10-09 15:23] VITALS: BP 162/80
[2017-10-09 19:04] VITALS: BP 163/82
[2017-10-10 04:17] VITALS: BP 129/40
[2017-10-10 04:51] LABS: ABSOLUTE NEUTROPHILS 3.1 thou/uL (1.4-8.2); BASOPHILS 0.8 % (0.0-2.0); EOSINOPHILS 6.8 % (0.0-3.0); HEMATOCRIT 33.2 % (42.0-52.0); HEMOGLOBIN 10.9 gm/dL (14.0-18.0); LYMPHOCYTES 25.7 % (24.0-44.0); MCH 24.9 pg (26.0-34.0); MCHC 32.8 g/dL (28.0-37.0); MCV 75.9 fL (80.0-100.0); MONOCYTES 13.8 % (1.0-8.0); PLATELET COUNT 180 thou/uL (150-400); POLYS 52.9 % (36.0-66.0); RBC 4.37 mil/uL (4.50-6.00); WBC 5.9 thou/uL (4.0-11.0)
[2017-10-10 05:03] LABS: CALCIUM 9.3 mg/dL (8.5-10.1); CREATININE 1.2 mg/dL (0.7-1.3); POTASSIUM 3.9 mmol/L (3.5-5.1)
[2017-10-10 06:01] VITALS: BP 123/77
[2017-10-10 08:48] VITALS: BP 131/56
[2017-10-10 11:12] VITALS: BP 120/60
[2017-10-10 15:49] VITALS: BP 118/56
[2017-10-10 19:48] VITALS: BP 148/80
[2017-10-11 04:25] VITALS: BP 147/73
[2017-10-11 05:59] LABS: HEMATOCRIT 33.5 % (42.0-52.0); MCH 24.7 pg (26.0-34.0); MCHC 32.8 g/dL (28.0-37.0); MCV 75.4 fL (80.0-100.0); RBC 4.45 mil/uL (4.50-6.00); RDW 16.3 % (10.5-14.5); WBC 6.1 thou/uL (4.0-11.0)
[2017-10-11 06:23] LABS: CREATININE 1.2 mg/dL (0.7-1.3); POTASSIUM 3.5 mmol/L (3.5-5.1)
[2017-10-11 08:00] VITALS: BP 140/78
[2017-10-11 14:00] VITALS: BP 122/75
[2017-10-11 21:08] VITALS: BP 13/64; BP 131/64
[2017-10-12 05:42] VITALS: BP 108/60
[2017-10-12 08:00] VITALS: BP 135/77
[2017-10-12 12:00] VITALS: BP 115/69
[2017-10-12 13:28] VITALS: BP 150/82
[2017-10-12 13:48] VITALS: BP 150/82
[2017-11-24] MEDS ORDERED: GLIPIZIDE XL5 MG PO (11:20)
[2017-11-24] MEDS ORDERED: ASPIR 8181 MG PO (11:21)
[2017-11-24] MEDS ORDERED: IRON325 PO (15:30)
[2018-02-08] MEDS ORDERED: ELIQUIS5 MG PO (08:36)
[2018-02-08] MEDS ORDERED: MULTAQ 400 MG400 MG PO (08:36)
== END 2017-10-12 15:04 | disposition home or self-care (01) | DRG 871 ==
LOC: ER 03:18 → EROBS 04:30 → 3W 04:30
PROVIDERS: Emergency Medicine; Family Medicine; Hospitalist; Internal Medicine Pulmonary Disease; Nurse Practitioner; Registered Nurse
PROC: 0DB68ZZ Excision of Stomach, Via Natural or Artificial Opening Endoscopic (ICD-10-PCS; principal; 2017-10-11)
PROC: 0DB88ZX Excision of Small Intestine, Via Natural or Artificial Opening Endoscopic, Diagnostic (ICD-10-PCS; principal; 2017-10-11)
PROC: 0DBH8ZZ Excision of Cecum, Via Natural or Artificial Opening Endoscopic (ICD-10-PCS; principal; 2017-10-11)
PROC: 0DBM8ZZ Excision of Descending Colon, Via Natural or Artificial Opening Endoscopic (ICD-10-PCS; principal; 2017-10-11)
DX: A41.9 Sepsis, unspecified organism (principal); E43 Unspecified severe protein-calorie malnutrition; N17.1 Acute kidney failure with acute cortical necrosis; L03.115 Cellulitis of right lower limb; B95.5 Unspecified streptococcus as the cause of diseases classified elsewhere; I95.1 Orthostatic hypotension; Z96.653 Presence of artificial knee joint, bilateral; Z96.641 Presence of right artificial hip joint; D50.9 Iron deficiency anemia, unspecified; G47.33 Obstructive sleep apnea (adult) (pediatric); E86.0 Dehydration; N40.0 Benign prostatic hyperplasia without lower urinary tract symptoms; I25.10 Atherosclerotic heart disease of native coronary artery without angina pectoris; E11.9 Type 2 diabetes mellitus without complications; M19.90 Unspecified osteoarthritis, unspecified site; I48.0 Paroxysmal atrial fibrillation; E66.9 Obesity, unspecified; K57.90 Diverticulosis of intestine, part unspecified, without perforation or abscess without bleeding; K63.5 Polyp of colon; K31.7 Polyp of stomach and duodenum; I10 Essential (primary) hypertension; R65.20 Severe sepsis without septic shock; E78.5 Hyperlipidemia, unspecified; Z88.6 Allergy status to analgesic agent; Z88.8 Allergy status to other drugs, medicaments and biological substances; Z95.1 Presence of aortocoronary bypass graft; Z90.49 Acquired absence of other specified parts of digestive tract; Z98.42 Cataract extraction status, left eye; Z98.41 Cataract extraction status, right eye; K57.30 Diverticulosis of large intestine without perforation or abscess without bleeding; Z86.718 Personal history of other venous thrombosis and embolism; Z86.711 Personal history of pulmonary embolism; Z95.828 Presence of other vascular implants and grafts; Z79.82 Long term (current) use of aspirin; Z79.899 Other long term (current) drug therapy; Z68.33 Body mass index [BMI] 33.0-33.9, adult
CPT/HCPCS: 10779; 62110; 62900; 70005

== ENCOUNTER → 2017-11-03 | Outpatient (CLI) | payer OTHER, MEDICARE ==
[~2017-11-03] MED LIST changes: +AMOXICILLIN 50500 MG PO
== END | disposition home or self-care (01) ==
LOC: GI 08:10
DX: D50.9 Iron deficiency anemia, unspecified (principal); Z98.890 Other specified postprocedural states; Z79.899 Other long term (current) drug therapy; Z88.8 Allergy status to other drugs, medicaments and biological substances; Z79.891 Long term (current) use of opiate analgesic

== ENCOUNTER → 2018-02-08 | Outpatient (CLI) | payer OTHER, MEDICARE ==
[~2018-02-08] MED LIST changes: +GLIPIZIDE XL5 MG PO; +IRON325 PO; +MULTAQ 400 MG400 MG PO
--- NOTE | ~2018-02-08 | P ---
[facility] [place] [address] PROCEDURE REPORT Name: SHANNON GASTON Room #: REG Jennifer Guerrero.#: [id number] Admission: 02/08/18 Attend Phys: Thad Gonzalez MD Discharge: Date of : 41 Report #: [id number] THIS REPORT FOR: //name// CC: Wang Gonzalez PROCEDURE: Implantable loop recorder insertion. PREOPERATIVE DIAGNOSES: 1. Palpitations. 2. Atrial fibrillation. HISTORY: The patient is a 77-year-old with a history of paroxysmal AFib and frequent palpitations, who is here for implantable loop recorder insertion. DESCRIPTION OF PROCEDURE: The patient underwent informed consent. He was prepped and draped in a sterile fashion. I injected lidocaine at the site. An incision was made and the device was injected subcutaneously. A layer of 3-0 Vicryl was performed and surgical glue was placed at the skin layer. There were no complications and no significant bleeding. The implanted device was a Pollfish BioMonitor 2, serial #[id number]. The device was programmed to its nominal settings. CONCLUSIONS: Successful implantable loop recorder insertion. By: [id number] Thad Gonzalez MD /nt
[2018-02-08 12:42] VITALS: BP 148/67
== END | disposition home or self-care (01) ==
LOC: CATH 08:22
DX: I48.0 Paroxysmal atrial fibrillation (principal)

== ENCOUNTER → 2018-06-02 | Outpatient (CLI) | payer OTHER, MEDICARE ==
[2018-06-02 08:46] LABS: HEMATOCRIT 42.3 % (42.0-52.0); HEMOGLOBIN 14.8 gm/dL (14.0-18.0); MCV 88.6 fL (80.0-100.0); RBC 4.78 mil/uL (4.50-6.00); RDW 13.9 % (10.5-14.5); WBC 5.6 thou/uL (4.0-11.0)
[2018-06-02 09:00] LABS: ALBUMIN 4.1 g/dL (3.4-5.0); CALCIUM 9.5 mg/dL (8.5-10.1); CREATININE 1.2 mg/dL (0.7-1.3); POTASSIUM 4.2 mmol/L (3.5-5.1); TOTAL BILIRUBIN 0.5 mg/dL (<0.1-1.0); TOTAL PROTEIN 7.4 g/dL (6.4-8.2)
== END ==
LOC: CAT 08:03
PROVIDERS: Internal Medicine Cardiovascular Disease
DX: I48.91 Unspecified atrial fibrillation (principal); I25.10 Atherosclerotic heart disease of native coronary artery without angina pectoris; K44.9 Diaphragmatic hernia without obstruction or gangrene; M47.814 Spondylosis without myelopathy or radiculopathy, thoracic region; Z90.49 Acquired absence of other specified parts of digestive tract

== ENCOUNTER 2018-06-13 06:53 | Observation (INO) | payer OTHER, MEDICARE ==
[~2018-06-13] VITALS: Ht 188 cm; Wt 124.7 kg
--- NOTE | ~2018-06-13 | P ---
[facility] [place] [address] PROCEDURE REPORT Name: SHANNON GASTON Room #: 218-P [facility] Moshe Roy#: [id number] Admission: 06/13/18 Attend Phys: Thad Gonzalez MD Discharge: 06/14/18 Date of : 41 Report #: [id number] THIS REPORT FOR: //name// CC: Tavon Gonzalez PREOPERATIVE DIAGNOSES: 1. Paroxysmal atrial fibrillation. 2. Cor triatriatum karen. POSTOPERATIVE DIAGNOSES: 1. Paroxysmal atrial fibrillation. 2. Cor triatriatum karen. PROCEDURES PERFORMED: 1. AFib ablation, CPT code 52891. 2. 3D mapping EP, CPT code 57282. 3. Intracardiac echo, CPT code 14373. HISTORY: The patient is a 78-year-old with history of coronary artery disease, status post CABG and paroxysmal atrial fibrillation and symptomatic bradycardia intolerant of Multaq therapy. He is here for AFib ablation. On transesophageal echo, he was incidentally found to have cor triatriatum karen. ANESTHESIA: The patient underwent general anesthesia with no anesthesia related complications. DESCRIPTION OF PROCEDURE: The patient underwent informed consent. We discussed the details of the procedure including the risks, which include but not limited to bleeding, infection, vascular damage, cardiac perforation as well as stroke or [place]. He understood these risks and is willing to proceed. The patient was brought to the EP laboratory in a fasting and unsedated state and prepped and draped in a sterile fashion. I obtained access to the right femoral vein x 3, placing an 8, 9 and 7-Malian short sheath using the modified Seldinger technique. The patient does have a history of IVC filter placed and I did take an image of this pre and post-ablation and it remained stable. I was able to cross the IVC filter without disruption. Once I entered the right atrium, I did have some difficulties advancing my ice catheter and decapolar catheter into the right atrium, which was likely due to his cor triatriatum karen. We did visualize this under intracardiac ultrasound and I was able to maneuver my decapolar catheter into the SVC; therefore, I knew I could perform phrenic nerve pacing and then I was able to put my decapolar catheter into the coronary sinus. Next, the patient was systemically heparinized and a transseptal was performed using an SL1 sheath and a Celina needle. I was able [facility] [address] [place] [address] PROCEDURE REPORT Name: SHANNON GASTON Room #: 218-P RUBI Roy#: [id number] Admission: 06/13/18 Attend Phys: Thad Gonzalez MD Discharge: 06/14/18 Date of : 41 Report #: [id number] to cross with my SL1 sheath into the left atrium. I then attempted to exchange the SL1 sheath for the cryo sheath, but due to the thickness of the septum, I could not advance the cryo sheath into the left atrium. Therefore, using a 6 mm x 3 cm balloon, I was able to predilate the interatrial septum and then I was able to advance my cryo sheath into the left atrium. At baseline, the patient was in sinus rhythm with a sinus cycle length of 1045 milliseconds, NH interval 250 milliseconds, QRS duration 90 milliseconds, QT interval 430 milliseconds. Next, I placed the cryoballoon into the left superior vessel. The patient did have evidence of a left common ostium and evidence of a right superior and right inferior pulmonary vein. I performed three freezes in the left superior pulmonary vein and this would not isolate. I then attempted to isolate the left inferior vein and this would not isolate either. This was despite good temperatures. I then attempted to isolate the right superior pulmonary vein and again this would not isolate despite good temperatures. I was concerned that potentially the cryoballoon had a slight kink in the mid shaft, which was preventing good apposition of the balloon with the veins. We therefore exchanged to a new cryoballoon and I went back to the left superior pulmonary vein and this isolated within 90 seconds. We performed two 4-minute freezes in this vein. I then went to go isolate the left inferior pulmonary vein and this was now isolated. I then turned my attention to the right superior pulmonary vein. I performed a 4-minute freeze and this vein isolated. I then performed a second freeze of around 120 seconds given the attempts were cold. I then re-interrogated the left-sided veins. These remained isolated and I turned my attention to the right inferior pulmonary vein. I performed a 4-minute freeze and was still connected and then I performed a second freeze of 180 seconds and during the second freeze the vein isolated within 20 seconds. All veins appear to be isolated. During isolation of the right-sided veins, I did perform phrenic nerve pacing from the decapolar catheter placed at the subclavian vessel. Using intracardiac ultrasound, I verified there is no pericardial effusion. As such, all catheters and sheaths were pulled out after hemostasis was obtained. The patient awoke. Post-ablation, the patient was in sinus rhythm with a sinus cycle length of 1050 milliseconds, NH interval 247 milliseconds, QRS duration 99 milliseconds and QT interval 475 milliseconds. CONCLUSIONS: 1. Successful AFib ablation with isolation of the left common ostium, the right superior and right inferior pulmonary veins. 2. Successful transseptal despite cor triatriatum karen. <ELECTRONICALLY SIGNED> By: Thad Gonzalez MD 06/15/18 1609 1233 0056 Thad Gonzalez MD /nt
--- NOTE | ~2018-06-13 | D ---
[facility] [place] [address] DISCHARGE SUMMARY Name: SHANNON GASTON Room #: 218-P [facility] Moshe Roy#: [id number] Admission: 06/13/18 Attend Phys: Thad Gonzalez MD Discharge: 06/14/18 Date of : 41 Report #: [id number] THIS REPORT FOR: //name// CC: Tavon Gonzalez DATE OF SERVICE: 06/14/2018 DISCHARGE DIAGNOSES: 1. Paroxysmal atrial fibrillation. 2. Coronary artery disease. 3. Cor triatriatum karen. HISTORY OF PRESENT ILLNESS: The patient is a 78-year-old with history of atrial fibrillation who has been intolerant of Multaq therapy due to symptomatic bradycardia. He is here for an AFib ablation. His DONNA prior to the procedure showed that he had cor triatriatum karen. The patient underwent successful AFib ablation today. His cor triatriatum karen did not really impede my ability to go transseptal. All veins were successfully isolated and there were no procedural complications. HOSPITAL COURSE: The patient was monitored in the CCU overnight and did well. He maintained sinus rhythm. On the day of discharge, he denied any chest pain, shortness of breath, fevers or chills. On physical exam, his heart was in regular rate and rhythm. Lungs were clear to auscultation bilaterally. Abdomen was soft, nontender, nondistended and his right groin showed no bruising or hematoma. As such, he was deemed stable for discharge home. Discharge instructions were reviewed. His home medications were unchanged and he will continue with Multaq and Eliquis therapy. He will follow up in 2 weeks for a clinic visit. <ELECTRONICALLY SIGNED> By: Thad Gonzalez MD 06/15/18 1609 0822 1146 Thad Gonzalez MD /nt
[2018-06-13 07:14] LABS: HEMATOCRIT 43.5 % (42.0-52.0); HEMOGLOBIN 14.9 gm/dL (14.0-18.0); MCH 30.6 pg (26.0-34.0); MCHC 34.3 g/dL (28.0-37.0); MCV 89.1 fL (80.0-100.0); PLATELET COUNT 150 thou/uL (150-400); RBC 4.88 mil/uL (4.50-6.00); RDW 13.9 % (10.5-14.5); WBC 6.2 thou/uL (4.0-11.0)
[2018-06-13 07:23] LABS: CALCIUM 9.7 mg/dL (8.5-10.1); CREATININE 1.4 mg/dL (0.7-1.3); POTASSIUM 4.2 mmol/L (3.5-5.1)
[2018-06-13 07:29] LABS: TOTAL BILIRUBIN 0.8 mg/dL (<0.1-1.0); TOTAL PROTEIN 7.7 g/dL (6.4-8.2)
[2018-06-13 07:30] LABS: APTT 25.7 Seconds (24.5-32.8); PROTIME 10.8 Seconds (9.3-11.4)
[2018-06-13] MEDS ORDERED: TYLENOL EXTRA500 MG PO (07:35)
[2018-06-13 07:36] VITALS: BP 131/64
[2018-06-13] MEDS ORDERED: CARDIZEM CD 18180 M3 PO (07:40)
[2018-06-13 07:48] LABS: ABSOLUTE NEUTROPHILS 3.7 thou/uL (1.4-8.2)
[2018-06-13 15:06] VITALS: BP 128/75
[2018-06-13 15:55] VITALS: BP 128/75
[2018-06-13 20:47] VITALS: BP 144/74
[2018-06-14 00:19] VITALS: BP 144/72
[2018-06-14 07:22] VITALS: BP 148/71
[2018-06-14 09:10] VITALS: BP 148/71
[2018-06-14 09:21] VITALS: BP 148/71
== END 2018-06-14 09:45 | disposition home or self-care (01) ==
LOC: CATH 06:53 → 2N 14:13 → CATH 14:42 → 2N 06-14 09:45 → ENTRNSPT 06-14 09:52
PROVIDERS: Internal Medicine Cardiovascular Disease
DX: I48.0 Paroxysmal atrial fibrillation (principal); Q24.2 Cor triatriatum; I25.10 Atherosclerotic heart disease of native coronary artery without angina pectoris; I47.1 Supraventricular tachycardia; G47.33 Obstructive sleep apnea (adult) (pediatric); E78.00 Pure hypercholesterolemia, unspecified; R00.1 Bradycardia, unspecified; Z98.890 Other specified postprocedural states; Z72.89 Other problems related to lifestyle; Z95.1 Presence of aortocoronary bypass graft; Z90.49 Acquired absence of other specified parts of digestive tract; Z86.711 Personal history of pulmonary embolism; Z79.82 Long term (current) use of aspirin; Z79.01 Long term (current) use of anticoagulants; Z79.899 Other long term (current) drug therapy
CPT/HCPCS: 62110; 62900; 65020; 65040; 65043; 70005

== ENCOUNTER → 2018-06-16 | Outpatient (CLI) | payer OTHER, MEDICARE ==
[~2018-06-16] MED LIST changes: +CARDIZEM CD 18180 M3 PO
--- NOTE | ~2018-06-16 | 2DMMODE ---
[facility] [address] [place] [address] 2 D/M-MODE ECHOCARDIOGRAM Name: SHANNON GASTON Room #: REG [facility]#: [id number] Admission: 06/16/18 Attend Phys: Thad Gonzalez Discharge: Date of : 42 Date of Service: 06/16/18 1221 Report #: [id number] THIS REPORT FOR: //name// APPROVED REPORT Study performed: 06/16/2018 11:38:29 EXAM: Limited 2D Echocardiogram Patient Location: Out-Patient Room #: P Status: routine BSA: 2.49 HR: 56 bpm BP: 130/74 mmHg Rhythm: NSR Other Information Study Quality: Adequate Indications S/P Ablation, R/O pericardial effusion Chest Pain, Short of Breath 2D Dimensions IVSd: 12.62 (7-11mm) LVDd: 49.18 mm PWd: 14.37 (7-11mm) LVDs: 34.84 (25-40mm) LV Single Plane 4CH: 55.55 % LV Single Plane 2CH: 55.37 % Left Ventricle Left ventricle is grossly normal size. Mild concentric left ventricular hypertrophy. The left ventricular systolic function is normal. The left ventricular ejection fraction is within the normal range. LVEF is 55%. Great Vessels IVC is normal in size and collapses >50% with inspiration. Pericardium There is no pericardial effusion. <Conclusion> Left ventricle is grossly normal size. [facility] [address] [place] [address] 2 D/M-MODE ECHOCARDIOGRAM Name: SHANNON GASTON Room #: REG [facility].#: [id number] Admission: 06/16/18 Attend Phys: Thad Gonzalez Discharge: Date of : 42 Date of Service: 06/16/18 1221 Report #: [id number] Mild concentric left ventricular hypertrophy. The left ventricular systolic function is normal. LVEF is 55%. There is no pericardial effusion. <ELECTRONICALLY SIGNED> By: Wang Sharpe MD 06/16/18 1221 20 20 Wang Sharpe MD /INF
== END ==
LOC: RAD 11:12 → CV 11:12
DX: I51.7 Cardiomegaly (principal); I48.91 Unspecified atrial fibrillation; R06.00 Dyspnea, unspecified; Z98.890 Other specified postprocedural states

== ENCOUNTER → 2018-07-11 | Outpatient (CLI) | payer OTHER, MEDICARE | LOC: CAT 10:27 | DX: G31.9 Degenerative disease of nervous system, unspecified (principal); I67.82 Cerebral ischemia; G93.0 Cerebral cysts ==

== ENCOUNTER → 2019-04-06 | Outpatient (CLI) | payer OTHER, MEDICARE ==
[~2019-04-06] VITALS: Ht 188 cm; Wt 120.2 kg
[2019-04-06 07:10] LABS: HEMATOCRIT 45.3 % (42.0-52.0); HEMOGLOBIN 15.5 gm/dL (14.0-18.0); MCH 30.1 pg (26.0-34.0); MCHC 34.1 g/dL (28.0-37.0); MCV 88.3 fL (80.0-100.0); PLATELET COUNT 160 thou/uL (150-400); RBC 5.13 mil/uL (4.50-6.00); RDW 13.5 % (10.5-14.5); WBC 4.9 thou/uL (4.0-11.0)
[2019-04-06 07:12] VITALS: BP 153/73
[2019-04-06 07:24] LABS: APTT 27.1 Seconds (24.5-32.8); PROTIME 10.5 Seconds (9.3-11.4)
[2019-04-06 07:25] LABS: ALBUMIN 3.9 g/dL (3.4-5.0); CALCIUM 9.3 mg/dL (8.5-10.1); CREATININE 1.3 mg/dL (0.7-1.3); POTASSIUM 3.9 mmol/L (3.5-5.1); TOTAL BILIRUBIN 0.6 mg/dL (<0.1-1.0); TOTAL PROTEIN 7.7 g/dL (6.4-8.2)
[2019-04-06 08:06] LABS: ABSOLUTE NEUTROPHILS 2.8 thou/uL (1.4-8.2)
[2019-04-06 08:07] LABS: ANISOCYTOSIS SLIGHT
--- NOTE | 2019-04-07 14:23 | P ---
[facility] [place] [address] PROCEDURE REPORT Name: SHANNON GASTON Room #: REG JOSS Kirill#: [id number] Admission: 04/06/19 Attend Phys: Thad Goznalez MD Discharge: Date of : 41 Report #: [id number] THIS REPORT FOR: //name// CC: Karsetn Gonzalez PREOPERATIVE DIAGNOSIS: Supraventricular tachycardia. POSTOPERATIVE DIAGNOSIS: Typical atrioventricular wisam reentrant tachycardia. PROCEDURES PERFORMED: 1. SVT ablation, CPT code 46206. 2. EP with left atrial pacing and recording, CPT code 16795. 3. Program stimulation and pacing after IV drug infusion, CPT code 35011. 4. 3D mapping, CPT code 33952. HISTORY OF PRESENT ILLNESS: The patient is a 79-year-old male status post AVNRT ablation approximately 5 years ago by another cotton tipper. He is also recently status post AFib ablation. The patient also has a history of cor triatriatum karen as well as an IVC filter. He also has an implantable loop recorder, which showed frequent episodes of supraventricular tachycardia that looks to be consistent with AV wisam reentrant tachycardia. He is here for EP study and ablation. ANESTHESIA: The patient underwent general anesthesia with no anesthesia complications. DESCRIPTION OF PROCEDURE: The patient underwent informed consent. We discussed the details of the procedure including the risks, which included but not limited to bleeding, vascular damage, cardiac perforation as well as stroke or [place]. We discussed that we would look for SVT. If we could not induce SVT, we would check his pulmonary veins and ensure that these are still isolated. The patient was brought to the EP laboratory in a fasting and sedated state and prepped and draped in a sterile fashion. The patient did receive IV antibiotics for antibiotic prophylaxis given prior infections. I obtained access in the right femoral vein x 3, in the left femoral vein x 1. In the right femoral vein, I placed a 6 and 7-Upper Sorbian short sheath and in the left femoral vein, I placed a 6-Upper Sorbian short sheath. Next, under fluoroscopy, I advanced all catheters easily through the IVC filter and into the heart. I placed 3 quadripolar catheters at the HRA, His and RV positions. I also placed a decapolar catheter into the coronary sinus for left atrial pacing and recording. Of note, I could not get the decapolar catheter to sit well into the coronary sinus and it was usually about longterm out would flip out as well. Next, a basic EP study was performed. At baseline, the patient was in sinus rhythm with sinus cycle length of 965 milliseconds, NC interval 200 milliseconds, QRS duration 90 milliseconds, QT interval 440 milliseconds, AH interval 145 [facility] [address] [place] [address] PROCEDURE REPORT Name: SHANNON GASTON Room #: REG CL Kirill#: [id number] Admission: 04/06/19 Attend Phys: Thad Gonzalez MD Discharge: Date of : 41 Report #: [id number] milliseconds, and HV interval 42 milliseconds. Next, atrial pacing was performed and AV block appeared to be around 600 milliseconds, but it was hard to discern as the patient had frequent PACs. Ventricular pacing was performed and VA block was noted at 420 milliseconds and VA conduction appeared to be both midline and decremental. Next, isoproterenol infusion was initiated and AV block was around 500 milliseconds. Atrial ERP was noted at 350 milliseconds at [address] cycle length. VA block was noted at 300 milliseconds, which was both midline and decremental. Again, I could not induce SVT. Next, isoproterenol infusion was increased to 4 mcg per minute. VA ERP was noted at 210 milliseconds at [address] cycle length with VA conduction that was both midline and decremental. Atrial burst pacing was then performed and the patient went into SVT with a tachycardia cycle length of 400 milliseconds, septal VA time of 35 milliseconds. Ventricular entrainment was performed and there was evidence of a VAHV response consistent with typical AV wisam reentrant tachycardia. 3D MAPPING AND ABLATION: Next, I removed my HRA catheter and placed my SR0 sheath and 4-mm Biosense Ayala ablation catheter into the right atrium. I created a detailed 3D geometry of the His bundle region, slow pathway region and coronary sinus ostium. Again, I had difficulty keeping the decapolar catheter in the coronary sinus, so this was removed. I moved my His catheter to the right atrium, so I could monitor atrial electrograms during RF ablation. Initially, I had difficulty finding a good signal. My first two lesions at 50 cazares and 55 degrees resulted no junctionals. I switched over to my F-curve and was able to get a better A and V ratio. I had very nice atrial signals and I performed an additional 3 lesions, each of 1 minute duration and during these 3 lesions, I got intermittent junctional beats. I was approximately 10 mm below our His cloud and I was right at the lip of the coronary sinus ostium. As such, post-ablation testing was performed. I was able to once again get my decapolar catheter into the coronary sinus about longterm. I used this for atrial burst pacing. Isoproterenol was initiated at 4 mcg per minute and AV block was noted at 400 milliseconds. AV wisam ERP was noted at 310 milliseconds at [address] cycle length. No SVT was induced. Isoproterenol was then increased to 5 mcg per minute and AV block was noted at 350 milliseconds with no inducible SVT. Previously SVT was induced at around 350 milliseconds prior to ablation. There was no evidence of any jumps and no echoes noted as well. Post-ablation, the patient was in sinus rhythm, sinus cycle length of 655 milliseconds, NC interval 210 milliseconds, QRS duration 90 milliseconds, QT interval 385 milliseconds, AH interval 128 milliseconds, and HV interval 42 milliseconds. As such, all catheters and sheaths were pulled. Hemostasis obtained. The patient awoke neurologically and hemodynamically intact. No complications and no significant bleeding. CONCLUSIONS: 1. Successful ablation of typical AV wisam reentrant tachycardia. 2. Normal SA wisam function. [facility] [address] [place] [address] PROCEDURE REPORT Name: SHANNON GASTON Room #: REG [facility] Kirill#: [id number] Admission: 04/06/19 Attend Phys: Thad Gonzalez MD Discharge: Date of : 41 Report #: [id number] 3. Normal AV wisam function. 4. Normal His-Purkinje function. 5. No other inducible arrhythmias on or off isoproterenol. <ELECTRONICALLY SIGNED> By: Thad Gonzalez MD 04/07/19 1423 1150 1630 Thad Gonzalez MD /nt
== END | disposition home or self-care (01) ==
LOC: CATH 06:36
PROVIDERS: Internal Medicine Cardiovascular Disease
DX: I47.1 Supraventricular tachycardia (principal); I10 Essential (primary) hypertension; I48.91 Unspecified atrial fibrillation; I25.10 Atherosclerotic heart disease of native coronary artery without angina pectoris; E78.5 Hyperlipidemia, unspecified; G47.33 Obstructive sleep apnea (adult) (pediatric); E11.9 Type 2 diabetes mellitus without complications; I25.2 Old myocardial infarction; N28.9 Disorder of kidney and ureter, unspecified; K21.9 Gastro-esophageal reflux disease without esophagitis; E66.09 Other obesity due to excess calories; Z98.890 Other specified postprocedural states; Z95.1 Presence of aortocoronary bypass graft; Z79.899 Other long term (current) drug therapy; Z79.01 Long term (current) use of anticoagulants; Z86.711 Personal history of pulmonary embolism; Z88.8 Allergy status to other drugs, medicaments and biological substances
CPT/HCPCS: 62110; 62900; 70005

== ENCOUNTER → 2019-12-06 | Outpatient (CLI) | payer OTHER, MEDICARE | LOC: SJCVCIMAG 10-10 08:18 | DX: I25.10 Atherosclerotic heart disease of native coronary artery without angina pectoris (principal); I47.1 Supraventricular tachycardia; I10 Essential (primary) hypertension; E78.00 Pure hypercholesterolemia, unspecified; I48.91 Unspecified atrial fibrillation; E78.5 Hyperlipidemia, unspecified; E11.9 Type 2 diabetes mellitus without complications; Z79.82 Long term (current) use of aspirin; Z79.899 Other long term (current) drug therapy; Z95.1 Presence of aortocoronary bypass graft ==

== ENCOUNTER → 2020-07-05 | Outpatient (CLI) | payer OTHER, MEDICARE | LOC: SJCVC 14:58 | PROVIDERS: ATTEND Internal Medicine Cardiovascular Disease | DX: R94.31 Abnormal electrocardiogram [ECG] [EKG] (principal); I48.0 Paroxysmal atrial fibrillation; I25.10 Atherosclerotic heart disease of native coronary artery without angina pectoris; I10 Essential (primary) hypertension; E78.00 Pure hypercholesterolemia, unspecified; Z79.899 Other long term (current) drug therapy ==

== ENCOUNTER 2020-09-30 13:06 | Inpatient (IN) | payer OTHER, MEDICARE ==
[~2020-09-30] VITALS: Ht 188 cm; Wt 112.0 kg
[2020-09-30 13:08] VITALS: BP 131/67
--- NOTE | 2020-09-30 13:17 | EKG ---
[address] [address] ELECTROCARDIOGRAM REPORT Name: SHANNON GASTON Room #: PRE M.R.#: [id number] Admission: Attend Phys: Discharge: Date of : 41 Report #: [id number] [facility] ED Test Date: 2020-09-30 Test Time: 13:13:34 Pat Name: SHANNON GASTON Department: Room: Gender: Sox Analyst: catherine : 1940 Requested By: Mago Nath Order Number: [id number] MD: Thad Gonzalez Measurements Intervals [place] Rate: 70 P: -11 KS: 235 QRS: 48 QRSD: 110 T: 76 QT: 469 QTc: 507 Interpretive Statements Sinus rhythm Prolonged KS interval Compared to ECG 11/24/2017 11:27:08 Electronically Signed On 09-30-2020 13:16:48 BUSINESS COORDINATOR by Thad Gonzalez [email or web address] <ELECTRONICALLY SIGNED> By: Thad Gonzalez MD 09/30/20 1316 1313 1313 Thad Gonzalez MD /EPI
[2020-09-30 14:01] LABS: ABSOLUTE NEUTROPHILS 3.4 thou/uL (1.4-8.2); BASOPHILS 0.3 % (0.0-2.0); EOSINOPHILS 1.9 % (0.0-3.0); HEMATOCRIT 42.6 % (42.0-52.0); HEMOGLOBIN 14.6 gm/dL (14.0-18.0); LYMPHOCYTES 26.9 % (24.0-44.0); MCH 30.8 pg (26.0-34.0); MCHC 34.3 g/dL (28.0-37.0); MCV 89.6 fL (80.0-100.0); MONOCYTES 13.8 % (1.0-8.0); PLATELET COUNT 157 thou/uL (150-400); POLYS 57.1 % (36.0-66.0); RBC 4.75 mil/uL (4.50-6.00); RDW 13.5 % (10.5-14.5)
[2020-09-30 14:09] LABS: ANION GAP 10 mmol/L (7-16); BUN 24 mg/dL (7-18); CALCIUM 9.5 mg/dL (8.5-10.1); CHLORIDE 101 mmol/L (98-107); CO2 26 mmol/L (21-32); CREATININE 1.5 mg/dL (0.7-1.3); GLUCOSE 164 mg/dL (74-106); POTASSIUM 3.7 mmol/L (3.5-5.1); SODIUM 137 mmol/L (136-145)
[2020-09-30 14:19] LABS: TROPONIN-I <0.06 ng/mL (<0.06)
--- NOTE | 2020-09-30 15:17 | NUR ---
PT. CONT. IN ER AT THIS TIME. PT. TO BE ADMITTED AND TO HAVE CARDIAC CATH. TOMORROW. PT. DENIES CP OR COMPLAINT OTHERWISE. PT. REMAINS ALERT AND ORIENTED X 4. NO DISTRESS APPRECIATED. VS AT THIS TIME= 96%RA SP02, 70HR, 16RR, 130/58 BP, 0/10 PAIN. PT. WITH SR ON THE MONITOR.
--- NOTE | 2020-09-30 15:19 | NUR ---
TIMELINE OF INTERVENTIONS WITH ARRIVAL TO ER. 1340= FIRST CONTACT WITH PATIENT, PT. PLACED ON ASSOCIATE MANAGER. 1345= IV INSERTED TO PT. L AC #20 1345= BLOOD COLLECTED WITH IV START AND SENT TO THE LABORATORY 1345= PT. C/O CP OF 12/09, DESCRIBES TIGHTNESS 1408= RADIOLOGY HERE TO TAKE X-RAY 1415= MEDICATIONS PROVIDED ORDERED 1445= COVID SPECIMEN OBTAINED AND TRANSPORTED TO THE LABORATORY 1518= DR. FISHER HERE TO SEE PATIENT
[2020-09-30 15:48] LABS: PROTIME 11.4 Seconds (9.3-11.4)
[2020-09-30] MEDS ORDERED: EYE MULTIVITAM1 EACH PO (22:11)
[2020-09-30] MEDS ORDERED: VITAMIN C500 M1 PO (22:12)
[2020-09-30 22:14] VITALS: BP 138/69
[2020-09-30] MEDS ORDERED: LIVALO2 MG PO (22:32)
[2020-10-01 01:29] VITALS: BP 124/52
--- NOTE | 2020-10-01 05:40 | NUR ---
Informed consent for cardiac cath signed and placed on the chart as patient reports he spoke with Dr. Sharpe about this yesterday.
[2020-10-01 05:50] LABS: HEMATOCRIT 42.5 % (42.0-52.0); HEMOGLOBIN 14.3 gm/dL (14.0-18.0); MCH 30.5 pg (26.0-34.0); MCHC 33.6 g/dL (28.0-37.0); MCV 90.7 fL (80.0-100.0); RBC 4.68 mil/uL (4.50-6.00); RDW 13.9 % (10.5-14.5); WBC 6.4 thou/uL (4.0-11.0)
[2020-10-01 06:15] LABS: ANION GAP 10 mmol/L (7-16); BUN 21 mg/dL (7-18); CALCIUM 9.1 mg/dL (8.5-10.1); CHLORIDE 103 mmol/L (98-107); CHOLESTEROL 147 mg/dL (<200); CO2 26 mmol/L (21-32); CREATININE 1.3 mg/dL (0.7-1.3); GLUCOSE 110 mg/dL (74-106); HDL CHOLESTEROL 51 mg/dL (>40); LDL CHOLESTEROL 73 mg/dL (<100); POTASSIUM 3.3 mmol/L (3.5-5.1); SODIUM 139 mmol/L (136-145); TC:HDL 2.9 Ratio (Not establshd); TRIGLYCERIDE 117 mg/dL (<150); VLDL 23 mg/dL (<40)
[2020-10-01 06:21] LABS: SERUM ASSESSMENT Clear
[2020-10-01 08:37] VITALS: BP 123/61
--- NOTE | 2020-10-01 10:25 | NUR ---
HEPARIN DC PER V/O OF CARDIOLOGY.
--- NOTE | 2020-10-01 11:45 | NUR ---
hospitalist at bedside to see pt
--- NOTE | 2020-10-01 12:44 | NUR ---
DR STINSON AT BEDSIDE TO SEE PT
[2020-10-01 13:59] VITALS: BP 142/67
[2020-10-01 14:00] VITALS: BP 142/81
--- NOTE | 2020-10-02 01:46 | HC ---
[facility] [place] [address] CONSULTATION Name: SHANNON GASTON Room #: 170-15 [facility] IN M.R.#: [id number] Admission: 09/30/20 Attend Phys: Arleen Thomas MD Discharge: 10/01/20 Date of : 41 Report #: [id number] THIS REPORT FOR: cc: JOSÉ MARSHALL MD, OSSAMA MD Geha,Sergio Lawson MD ~ DATE OF SERVICE: 10/01/2020 INFECTIOUS DISEASES CONSULTATION REASON FOR CONSULTATION: I was asked to evaluate concerning COVID-19 infection. HISTORY OF PRESENT ILLNESS: The patient is a 80-year-old, seen in the Emergency Room after he presented with chest pain the day before. He has had chest tightness and pain for approximately 24 hours. He had increased his exercise over the previous week and had gone a 3-mile walk the day before his presentation. He has had no shortness of breath, cough, syncope, or presyncopal episodes. He was evaluated by Cardiovascular Medicine who felt that this was noncardiogenic chest pain. Chest x-ray was clear. Cardiac enzymes were negative. The patient has a history of COVID-19 infection several months ago. He has remained asymptomatic. He received COVID vaccination series finishing his course several weeks ago. The patient denies any headache, cough, sputum production, loss of taste or smell. He has had no nausea, vomiting, or diarrhea. PAST MEDICAL HISTORY: Gastroesophageal reflux, atrial fibrillation, coronary artery disease, hypertension, hyperlipidemia, GI bleed, obstructive sleep apnea, diabetes, back surgery, pulmonary embolus, IVC filter, coronary bypass grafting. ALLERGIES: PENICILLIN, ADHESIVE TAPE, METOCLOPRAMIDE, OXYCODONE, PROPOXYPHENE. MEDICATIONS: As noted on his MAR, which were reviewed. FAMILY HISTORY AND SOCIAL HISTORY: Noncontributory other than that what has been described above. REVIEW OF SYSTEMS: A 14-point review was negative other than what has been described above. PHYSICAL EXAMINATION: GENERAL: He is afebrile and hemodynamically stable, alert, cooperative and pleasant, in no distress. Mild tenderness to his anterior chest wall. SKIN: Without rash. [facility] [address] [place] [address] CONSULTATION Name: SHANNON GASTON Room #: 170-15 [facility] IN M.R.#: [id number] Admission: 09/30/20 Attend Phys: Arleen Thomas MD Discharge: 10/01/20 Date of : 41 Report #: [id number] EYES: Without scleral icterus. MOUTH: Without mucositis. NECK: No palpable adenopathy. LUNGS: Clear. HEART: Regular, without murmur. ABDOMEN: Soft, nontender with no hepatosplenomegaly or mass. EXTREMITIES: With no edema. LABORATORY RESULTS: Reviewed. Chest x-ray reviewed. COVID-19 PCR was positive from nasal swab. Discussed with the laboratory noting his cycle threshold number of 36 from N1 and negative N2. IMPRESSION: A 80-year-old with noncardiogenic chest pain and COVID positive testing, which is consistent with either a false positive test or delayed clearance of the virus particles that were detected. In my experience, the current result would most likely be a false positive. Either way, there is no evidence for active disease at this point. No other evidence for infectivity. PLAN: Recommend continuing cardiology workup as previously outlined by Cardiovascular Medicine team. No further recommendations from Infectious Diseases other than continued viral transmission mitigation techniques. This was discussed with the patient. <ELECTRONICALLY SIGNED> By: Sergio Dupree MD 10/02/20 0146 0101 0122 Sergio Dupree MD /nt
== END 2020-10-01 14:07 | disposition home or self-care (01) | DRG 303 ==
LOC: ER 13:06 → EROBS 15:24 → ER 15:24 → EROBS 15:58
PROVIDERS: Emergency Medicine; Nurse Practitioner; ADMIT Internal Medicine; ATTEND Internal Medicine
DX: I25.110 Atherosclerotic heart disease of native coronary artery with unstable angina pectoris (principal); I47.1 Supraventricular tachycardia; N17.9 Acute kidney failure, unspecified; K21.9 Gastro-esophageal reflux disease without esophagitis; I48.91 Unspecified atrial fibrillation; E87.6 Hypokalemia; I12.9 Hypertensive chronic kidney disease with stage 1 through stage 4 chronic kidney disease, or unspecified chronic kidney disease; N18.30 Chronic kidney disease, stage 3 unspecified; G47.33 Obstructive sleep apnea (adult) (pediatric); E11.22 Type 2 diabetes mellitus with diabetic chronic kidney disease; M19.90 Unspecified osteoarthritis, unspecified site; E66.9 Obesity, unspecified; E78.5 Hyperlipidemia, unspecified; Z20.822 Contact with and (suspected) exposure to COVID-19; Z95.1 Presence of aortocoronary bypass graft; Z79.84 Long term (current) use of oral hypoglycemic drugs; Z79.82 Long term (current) use of aspirin; Z79.899 Other long term (current) drug therapy; Z88.8 Allergy status to other drugs, medicaments and biological substances; Z91.09 Other allergy status, other than to drugs and biological substances; Z86.711 Personal history of pulmonary embolism; Z68.31 Body mass index [BMI] 31.0-31.9, adult

== ENCOUNTER → 2020-10-08 | Outpatient (CLI) | payer OTHER, MEDICARE ==
[~2020-10-08] MED LIST changes: +EYE MULTIVITAM1 EACH PO; +LIVALO2 MG PO; +VITAMIN C500 M1 PO
== END ==
LOC: SJCVC 11:32
PROVIDERS: ATTEND Internal Medicine Cardiovascular Disease
DX: R94.31 Abnormal electrocardiogram [ECG] [EKG] (principal); I49.9 Cardiac arrhythmia, unspecified; I44.0 Atrioventricular block, first degree; I25.10 Atherosclerotic heart disease of native coronary artery without angina pectoris; I47.1 Supraventricular tachycardia; I48.0 Paroxysmal atrial fibrillation; I10 Essential (primary) hypertension; E78.00 Pure hypercholesterolemia, unspecified; G47.30 Sleep apnea, unspecified; Z95.818 Presence of other cardiac implants and grafts; Z98.890 Other specified postprocedural states; Z95.1 Presence of aortocoronary bypass graft; Z88.8 Allergy status to other drugs, medicaments and biological substances; Z79.899 Other long term (current) drug therapy; Z86.718 Personal history of other venous thrombosis and embolism

== ENCOUNTER → 2020-10-21 | Outpatient (CLI) | payer OTHER, MEDICARE | LOC: SJCVCIMAG 07:36 | PROVIDERS: ATTEND Internal Medicine Cardiovascular Disease | DX: I49.3 Ventricular premature depolarization (principal); R06.00 Dyspnea, unspecified; I25.110 Atherosclerotic heart disease of native coronary artery with unstable angina pectoris; I48.0 Paroxysmal atrial fibrillation; I10 Essential (primary) hypertension; E78.00 Pure hypercholesterolemia, unspecified; K21.9 Gastro-esophageal reflux disease without esophagitis; G47.33 Obstructive sleep apnea (adult) (pediatric); I71.4 Abdominal aortic aneurysm, without rupture; E78.5 Hyperlipidemia, unspecified; E66.9 Obesity, unspecified; Z86.718 Personal history of other venous thrombosis and embolism; Z79.899 Other long term (current) drug therapy; Z79.84 Long term (current) use of oral hypoglycemic drugs; Z86.711 Personal history of pulmonary embolism; Z95.818 Presence of other cardiac implants and grafts; Z72.89 Other problems related to lifestyle; Z88.1 Allergy status to other antibiotic agents; Z88.8 Allergy status to other drugs, medicaments and biological substances ==

== ENCOUNTER 2020-10-23 08:25 | Observation (INO) | payer OTHER, MEDICARE ==
[~2020-10-23] VITALS: Ht 188 cm; Wt 112.0 kg
[2020-10-23 08:36] VITALS: BP 134/60
[2020-10-23 13:00] VITALS: BP 121/57
--- NOTE | 2020-10-23 15:04 | CATHLAB ---
[facility] [place] [address] INVASIVE PROCEDURE REPORT Name: SHANNON GASTON Room #: 218-P [facility] Moshe MGabrielRGabriel#: [id number] Admission: 10/23/20 Attend Phys: Wang Sharpe MD Discharge: Date of : 42 Report #: [id number] THIS REPORT FOR: cc: NORMA VAUGHN Physician not on staff Wang Sharpe MD ~ APPROVED REPORT Study performed: 10/23/2020 09:18:15 Patient Details Patient Status: Out-Patient Room #: The patient is a 80 year-old male Event Personnel Wang Sharpe Outside Sales Inspector, Eliezer England RN RN, Kathryn Tesfaye RTR, CLINIC ADMINISTRATOR Monitor, Ramos Brian RTR Scrub Procedures Performed Art Access - R femoral artery* Left Heart Cath Coronaries, Bypass Grafts [id number] LHCCORCABG XENIA Place w/wo Plasty Single Left Main [id number] [id number] Initial Mod Sed Same Phys/QHP Gr5y 338743 60147 Mod Sed Same Phys/QHP Ea 937744 Hemostasis w/ Mynx Indication Dyspnea, Unstable angina , Positive stress test, Chest pain Risk Factors Hypercholesterolemia, Coronary Artery DiseaseHypertension, Diabetes Previous Procedures/Diagnoses Previous CABG Procedure Narrative The Right Groin^ was infiltrated with 1% Lidocaine subcutaneous anesthesia. A PINNACLE 4FR Sheath #[id number] sheath was inserted into the RFA^. Coronary angiography was performed using coronary diagnostic catheters. The right coronary system was accessed and visualized with a JR4 catheter. The left coronary system was accessed and visualized with a JL4 catheter. The left ventricle was accessed and visualized with a JR4 catheter. Left ventricular/Aortic Valve gradient assessed via catheter pullback. Pre-demployment femoral angiogram was performed . Closure device was deployed with a 6 Fr MYNXGRIP 6/7F #[id number]. The patient tolerated the procedure well and [facility] [place] [address] INVASIVE PROCEDURE REPORT Name: SHANNON GASTON Room #: 218-P [facility] IN M.R.#: [id number] Admission: 10/23/20 Attend Phys: Wang Sharpe MD Discharge: Date of : 42 Report #: [id number] there were no complications associated with the procedure. There was no hematoma. Intraoperative Conscious Sedation Sedation start time: 09:47 Case end Time: 11:01 Fentanyl 50 mcg Versed 1 mg Fluoro Time: 18.80 minutes Dose: DAP 17444.50 cGycm2 4954 mGy Contrast Type and Amount: Visipaque 155 ml Coronary Angiography The patient's coronary anatomy is right dominant. Diagnostic Cath Left Main There is a severe occlusion in the distal left main, with compromised flow to the left circumflex system. LAD There is a patent GROSSMAN graft with an end-to-side anastomosis to the mid LAD segment. The [place] LAD is patent but has a severe occlusion in the apical segment, 70%. Recommend medical therapy. Diagonal 1 There is a sequential SVG with an end-to-side anastomosis to the first diagonal artery. There is retrograde flow to the proximal diagonal artery. The distal diagonal artery is a small caliber vessel with compromised flow. Circumflex Supplies 2 OM vessels. Has compromised flow from the left main artery occlusion. Right Coronary The RCA is a moderate-sized caliber vessel, dominant. There is mild disease in the midsegment, 30%. R PDA This is a moderate-sized caliber vessel, patent with no flow-limiting lesions. RPLV This is a moderate-sized caliber vessel, patent with no flow-limiting lesions. Ramus The ramus artery is a moderate-sized caliber vessel. There is a patent sequential SVG to the first diagonal artery and terminates with an end-to-side anastomosis to the ramus artery. Left Ventriculography Left Ventriculography was not performed. Ejection Fraction was 60-65% based off patient's Nuclear Cardiac Stress Test. An LVEDP was measured and there is no gradient across the outflow tract. Hemodynamics The aortic pressure is 113/61 mmHg with a mean of 85 mmHg. [facility] [address] [place] [address] INVASIVE PROCEDURE REPORT Name: SHANNON GASTON Room #: 218-P ADM IN M.R.#: [id number] Admission: 10/23/20 Attend Phys: Wang Sharpe MD Discharge: Date of : 42 Report #: [id number] ventricular pressure is 121/8 mmHg with a mean of mmHg. The left ventricular end diastolic pressure is 13 mmHg. PCI Technique Lesion Percutaneous coronary intervention was performed on the LM. The lesion stenosis prior to intervention was 90% with MARVA 3 flow. A LAUNCHER 6FR JL4 #[id number] Guide Catheter was used to engage the ostium. A Luge Wire .014 x 182CM #[id number] Interventional Guidewire was used to cross the lesion. BALLOON DILATION A Balloon catheter MINI TREK RX 2.0 X 12 #[id number] was inserted and inflated up to 8.00atm for 6seconds. A second balloon catheter MINI TREK 1.5 X 8 was inserted and inflated up to 14 constantin for 15 seconds. Additional Inflation: 18 constantin for 20 seconds; Additional Inflation: 18 constantin for 10 seconds. MINI TREK 2.0 X 12 balloon catheter was reintroduced and inflated up to 12 constantin for 16 seconds. Additional Inflation: 18 constantin for 19 seconds. A TREK 2.5 X 8 balloon catheter was inserted and inflated up to 16 constantin for 41 seconds. Additional Inflation: 14 constantin for 17 seconds. STENT DEPLOYMENT A drug-eluting stent XIENCE RADHA RX 2.75 X 8 #[id number] was inserted and inflated up to 18.00atm for 32seconds. POST STENT DEPLOYMENT BALLOON DILATION A Balloon catheter E[place] NC RX 2.75 x 8 #[id number] was inserted and inflated up to 18.00atm for 28seconds. Additional Inflation: 18.00atm for 13seconds. Final angiography reveals 5 % stenosis with MARVA 3 flow. Conclusion 1. Successful insertion of a drug-eluting stent into the distal left main stenosis, with improved blood flow to the left circumflex system. 2. There is a patent GROSSMAN graft to the mid LAD segment. There is a severe, discrete stenosis in the apical LAD segment. Recommend medical therapy. 3. There is a patent sequential SVG to first diagonal artery and moderate-sized ramus artery. 4. The first diagonal artery is a small caliber vessel with severe disease distally. 5. The RCA is a dominant vessel with mild disease in the midsegment. [facility] [address] [place] [address] INVASIVE PROCEDURE REPORT Name: SHANNON GASTON Room #: 218-P [facility] IN M.R.#: [id number] Admission: 10/23/20 Attend Phys: Wang Sharpe MD Discharge: Date of : 42 Report #: [id number] 6. There is normal LV systolic function. 7. Recommend antiplatelet therapy and aggressive risk factor management. <ELECTRONICALLY SIGNED> By: Wang Sharpe MD 10/23/20 1504 1504 1504 Wang Sharpe MD /INF
[2020-10-23 15:20] VITALS: BP 119/56
--- NOTE | 2020-10-23 16:29 | EKG ---
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: FSCHWALBE : 1940 Requested By: Wang Sharpe Order Number: [id number] MD: Paulo Shepard Measurements Intervals [place] Rate: 68 P: -48 RI: 314 QRS: 28 QRSD: 123 T: 49 QT: 450 QTc: 479 Interpretive Statements Sinus rhythm Prolonged RI interval Nonspecific T wave abnormality Compared to ECG 09/30/2020 13:13:34 No significant changes found Electronically Signed On 10-23-2020 16:29:16 CDT by Paulo Shepard [email or web address] <ELECTRONICALLY SIGNED> By: Paulo Shepard MD, [facility] 10/23/20 1629 1204 1204 Paulo Shepard MD, FACC /EPI
--- NOTE | 2020-10-23 18:41 | NUR ---
PT ADMITTED TO FLOOR POST CATH, PT HAD 1 STENT PLACED IN LAD. R GROIN SITE WITH MYNX DRESSING, OFF BED REST AT 2PM. PT AMBULATED WELL WITH STAND BY ASSIST. GROIN SITE C.D.I WITH NO HEMATOMA OR BLEEDING NOTED, PT HAS NO CONCERNS AND IS READY TO GO HOME. VS WNL, CALL LIGHT IN REACH
[2020-10-23 19:17] VITALS: BP 131/54
[2020-10-24 04:43] VITALS: BP 131/60
[2020-10-24 05:55] LABS: HEMATOCRIT 41.1 % (42.0-52.0); HEMOGLOBIN 14.1 gm/dL (14.0-18.0); MCH 30.7 pg (26.0-34.0); MCHC 34.4 g/dL (28.0-37.0); MCV 89.4 fL (80.0-100.0); RBC 4.6 mil/uL (4.50-6.00); RDW 13.4 % (10.5-14.5); WBC 7.2 thou/uL (4.0-11.0)
[2020-10-24 06:26] LABS: ALBUMIN 3.4 g/dL (3.4-5.0); CREATININE 1.3 mg/dL (0.7-1.3); POTASSIUM 3.8 mmol/L (3.5-5.1); TOTAL BILIRUBIN 0.5 mg/dL (0.2-1.0); TOTAL PROTEIN 6.5 g/dL (6.4-8.2)
[2020-10-24] MEDS ORDERED: CLOPIDOGREL75 MG PO (07:36)
[2020-10-24 08:05] VITALS: BP 131/65
--- NOTE | 2020-10-24 08:17 | EKG ---
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: FSCHWALBE : 1940 Requested By: Wang Sharpe Order Number: [id number] MD: Paulo Shepard Measurements Intervals [place] Rate: 69 P: 28 [place]: 276 QRS: 32 QRSD: 96 T: 95 QT: 391 QTc: 419 Interpretive Statements Sinus rhythm Prolonged [place] interval Nonspecific T abnormalities, lateral leads Compared to ECG 10/23/2020 12:04:16 No significant changes Electronically Signed On 10-24-2020 8:16:47 CDT by Paulo Shepard [email or web address] <ELECTRONICALLY SIGNED> By: Paulo Shepard MD, [facility] 10/24/2016 1 1 Paulo Shepard MD, FACC /EPI
[2020-10-24 09:51] VITALS: BP 134/65
== END 2020-10-24 11:30 | disposition home or self-care (01) ==
LOC: CATH 08:25 → 2N 13:20
PROVIDERS: ADMIT Internal Medicine Cardiovascular Disease; ATTEND Internal Medicine Cardiovascular Disease
DX: I25.110 Atherosclerotic heart disease of native coronary artery with unstable angina pectoris (principal); I10 Essential (primary) hypertension; E78.5 Hyperlipidemia, unspecified; G47.33 Obstructive sleep apnea (adult) (pediatric); I48.91 Unspecified atrial fibrillation; Z79.899 Other long term (current) drug therapy; Z79.82 Long term (current) use of aspirin; Z86.718 Personal history of other venous thrombosis and embolism; Z95.1 Presence of aortocoronary bypass graft

== ENCOUNTER → 2020-10-31 | Outpatient (CLI) | payer OTHER, MEDICARE ==
[~2020-10-31] MED LIST changes: +CLOPIDOGREL75 MG PO
== END ==
LOC: SJCVC 12:24
PROVIDERS: ATTEND Internal Medicine Cardiovascular Disease
DX: R94.31 Abnormal electrocardiogram [ECG] [EKG] (principal); I44.0 Atrioventricular block, first degree; I11.9 Hypertensive heart disease without heart failure; I25.110 Atherosclerotic heart disease of native coronary artery with unstable angina pectoris; I48.0 Paroxysmal atrial fibrillation; I47.1 Supraventricular tachycardia; E78.00 Pure hypercholesterolemia, unspecified; R53.83 Other fatigue; G47.30 Sleep apnea, unspecified; Z79.899 Other long term (current) drug therapy; Z79.84 Long term (current) use of oral hypoglycemic drugs; Z72.89 Other problems related to lifestyle; Z88.1 Allergy status to other antibiotic agents; Z88.5 Allergy status to narcotic agent; Z88.8 Allergy status to other drugs, medicaments and biological substances

== ENCOUNTER → 2020-11-12 | Outpatient (CLI) | payer OTHER, MEDICARE | LOC: SJCVCIMAG 07:22 | PROVIDERS: ATTEND Internal Medicine Cardiovascular Disease | DX: R94.31 Abnormal electrocardiogram [ECG] [EKG] (principal); I08.2 Rheumatic disorders of both aortic and tricuspid valves; I44.0 Atrioventricular block, first degree; R00.1 Bradycardia, unspecified; I25.110 Atherosclerotic heart disease of native coronary artery with unstable angina pectoris; I48.0 Paroxysmal atrial fibrillation; I11.9 Hypertensive heart disease without heart failure; E78.00 Pure hypercholesterolemia, unspecified; R53.83 Other fatigue; G47.30 Sleep apnea, unspecified; E78.5 Hyperlipidemia, unspecified; E11.9 Type 2 diabetes mellitus without complications; Z72.89 Other problems related to lifestyle; Z79.899 Other long term (current) drug therapy; Z79.84 Long term (current) use of oral hypoglycemic drugs; Z95.1 Presence of aortocoronary bypass graft; Z88.1 Allergy status to other antibiotic agents; Z88.5 Allergy status to narcotic agent; Z88.8 Allergy status to other drugs, medicaments and biological substances ==

== ENCOUNTER → 2021-02-13 | Outpatient (CLI) | payer OTHER, MEDICARE | LOC: SJCVC 14:02 | PROVIDERS: ATTEND Internal Medicine Cardiovascular Disease | DX: R94.31 Abnormal electrocardiogram [ECG] [EKG] (principal); I44.0 Atrioventricular block, first degree; I48.0 Paroxysmal atrial fibrillation; I47.1 Supraventricular tachycardia; I51.7 Cardiomegaly; I25.110 Atherosclerotic heart disease of native coronary artery with unstable angina pectoris; E78.5 Hyperlipidemia, unspecified; G47.33 Obstructive sleep apnea (adult) (pediatric); E11.9 Type 2 diabetes mellitus without complications; D64.9 Anemia, unspecified; Z95.1 Presence of aortocoronary bypass graft; Z79.899 Other long term (current) drug therapy; Z72.89 Other problems related to lifestyle; Z88.8 Allergy status to other drugs, medicaments and biological substances; Z88.1 Allergy status to other antibiotic agents; Z88.5 Allergy status to narcotic agent ==